=== PATIENT | male | born 1975 | race Caucasian/White ===

== ENCOUNTER 2022-08-21 08:25 | Outpatient (CLI) | payer OTHER, SELFPAY ==
[2022-08-21 18:39] LABS: Alanine Aminotransferase 21 U/L (6-50); Albumin Level 4.8 g/dL (3.5-5.1); Alkaline Phosphatase 57 U/L (38-126); Anion Gap 5 mmol/L (8-16); Aspartate Amino Transferase 59 U/L (17-59); Bilirubin,Total 0.6 mg/dL (0.2-1.3); Blood Urea Nitrogen 22 mg/dL (9-20); Calcium 9.1 mg/dL (8.4-10.2); Carbon Dioxide 33 mmol/L (22-30); Chloride 103 mmol/L (98-107); Cholesterol 216 mg/dL (0-200); Estimated Glomerular Filt Rate > 60; Glucose 91 mg/dL (65-110); HDL Direct 60 mg/dL; Potassium 4.3 mmol/L (3.4-5.0); Sodium 141 mmol/L (137-145); Triglycerides 54 mg/dL (<150)
[2022-08-21 18:50] LABS: LDL Cholesterol Direct 114 mg/dL
[2022-08-21 19:24] LABS: Basophils Percent Auto 0.7 % (0.2-1.2); Eosinophils Absolute Auto 0.1 K/mm3 (0-0.3); Eosinophils Percent Auto 1.8 % (0-4.4); Hematocrit 46.7 % (42.0-52.0); Hemoglobin 15.1 g/dL (14.0-18.0); Immature Granulocyte Absolute 0.01 K/mm3 (0.00-0.031); Immature Granulocyte Percent A 0.2 % (0-0.5); Lymphocytes Absolute Auto 2.18 K/mm3 (0.9-3.2); Lymphocytes Percent Auto 39.6 % (18.3-44.2); Mean Corpuscular HGB Conc 32.3 g/dl (32-36); Mean Corpuscular Hemoglobin 29.9 pg (26-34); Mean Corpuscular Volume 92.5 fl (80-100); Mean Platelet Volume 10.8 fl (7.4-10.4); Monocytes Absolute Auto 0.5 K/mm3 (0.1-0.6); Monocytes Percent Auto 8.9 % (2.6-8.5); Neutrophils Absolute Auto 2.7 K/mm3 (1.3-6.7); Neutrophils Percent Auto 48.8 % (45.5-73.1); Platelet Count Result 219 k/mm3 (150-375); Red Blood Count 5.05 M/mm3 (4.6-6.20); Red Cell Distribution Width 12.2 % (11.5-14.5); White Blood Count 5.5 K/mm3 (4.5-10.0)
[2022-08-25 16:12] LABS: Testosterone Free 67.9 pg/mL (35.0-155.0); Testosterone Total 377 ng/dL (250-1100)
== END 2022-08-21 08:26 | disposition home or self-care (01) ==
PROVIDERS: PCP Family Medicine; Visit Provider Family Medicine
DX: Z00.00 Encounter for general adult medical examination without abnormal findings (principal); Z13.89 Encounter for screening for other disorder
CPT/HCPCS: 36415; 80053; 80061; 84402; 84403; 85025

== ENCOUNTER 2023-08-27 08:41 | Outpatient (CLI) | payer OTHER, SELFPAY ==
[2023-08-27 18:09] LABS: Hematocrit 46.2 % (42.0-52.0); Hemoglobin 14.7 g/dL (14.0-18.0); Mean Corpuscular HGB Conc 31.8 g/dl (32-36); Mean Corpuscular Hemoglobin 29.2 pg (26-34); Mean Corpuscular Volume 91.7 fl (80-100); Mean Platelet Volume 10.5 fl (7.4-10.4); Platelet Count Result 230 k/mm3 (150-375); Red Blood Count 5.04 M/mm3 (4.6-6.20); Red Cell Distribution Width 12.1 % (11.5-14.5); White Blood Count 5.7 K/mm3 (4.5-10.0)
[2023-08-27 18:21] LABS: Alanine Aminotransferase 31 U/L (6-50); Albumin Level 4.4 g/dL (3.5-5.1); Alkaline Phosphatase 56 U/L (38-126); Anion Gap 4 mmol/L (4-12); Aspartate Amino Transferase 94 U/L (17-59); Bilirubin,Total 0.6 mg/dL (0.2-1.3); Blood Urea Nitrogen 20 mg/dL (9-20); Calcium 9.3 mg/dL (8.4-10.2); Carbon Dioxide 29 mmol/L (22-30); Chloride 106 mmol/L (98-107); Cholesterol 196 mg/dL (0-200); Estimated Glomerular Filt Rate 58; Glucose 92 mg/dL (65-110); HDL Direct 62 mg/dL; Sodium 139 mmol/L (137-145); Triglycerides 59 mg/dL (<150)
[2023-08-27 18:42] LABS: LDL Cholesterol Direct 106 mg/dL
[2023-08-30 15:59] LABS: Testosterone Free 64.2 pg/mL (35.0-155.0); Testosterone Total 396 ng/dL (250-1100)
== END 2023-08-27 08:42 | disposition home or self-care (01) ==
LOC: ANHBWCLAB 08:42
PROVIDERS: PCP Family Medicine; Visit Provider Nurse Practitioner Adult Health
DX: Z13.9 Encounter for screening, unspecified (principal); Z12.5 Encounter for screening for malignant neoplasm of prostate; R53.83 Other fatigue
CPT/HCPCS: 36415; 80053; 80061; 84153; 84402; 84403; 84443; 85027; G0103

== ENCOUNTER 2023-09-15 06:05 | Day surgery (SDC) | payer OTHER, SELFPAY ==
[2023-08-28 09:16] VITALS: BMI 28.9
--- NOTE | 2023-09-14 13:57 | P.HP_ITS ---
History of Present Illness History of Present Illness Consent: Risks, benefits, and alternatives have been discussed and questions answered. Patient agrees to proceed with procedure. Chief complaint: Screening neoplasm of colon Narrative: Sly Hall is a 48 year old male was referred for colon cancer screen Review of Systems Review of Systems: All systems reviewed & are unremarkable except as noted in HPI and below PMFSH Past Medical History Medical History Kidney stones Family History Family History Mother Ovarian cancer Social History Social History Smoking status: Never smoker Alcohol intake: current Drinks per week: 4 Alcohol use details: 6 Substance use: never Substance use type: does not use Lack of Transportation: No Lack of Food: Never True Current Housing: I Have Housing Concerned About Future Housing: No Difficulty Paying Gas/Electric Bills: No Difficulty Paying for Meds: No Currently Unemployed: No Education: Master's Degree or Higher Difficulty w/ Childcare or Family Care: No Living arrangements: with family Occupation/Education: occupation Additional occupation/education comments: [employer]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 Gender identity (if verbalized by the patient): Male Agree to blood products: Yes Meds Home Medications and Allergies Home Medications Medication Instructions Recorded Confirmed Type cetirizine 10 mg tablet (Zyrtec) 10 mg PO DAILY PRN Allergic 08/21/22 09/15/23 History Symptoms ibuprofen 800 mg tablet 800 mg PO Q6H 08/21/22 09/15/23 History tadalafil 2.5 mg tablet 8.5 mg PO DAILY 08/27/23 09/15/23 History Allergies Allergy/AdvReac Type Severity Reaction Status Date / Time No Known Allergies Allergy Verified 09/15/23 07:23 Exam Resp: Auscultation: clear to auscultation bilaterally Cardio: Rate: regular rate Rhythm: regular rhythm GI: GI Palp: Yes Soft to palpation and No Tenderness to palpation present (GI) Assessment and Plan Assessment and plan (1) Encounter for screening colonoscopy: Code(s): Z12.11 - Encounter for screening for malignant neoplasm of colon Status: Acute Assessment and Plan: Colonoscopy with possible biopsy or polypectomy or cautery or injection of substances.
--- NOTE | 2023-09-15 07:16 | P.PNAN_ITS ---
Anes - Initial Pre Proc Eval Procedure: Operation Date: 09/15/23 08:30 Proposed Procedures p Screening Colonoscopy - Colby Perdomo MD Date/Time: 09/15/23 07:16 Surgeon: Colby Perdomo MD Pre Op Diagnosis: Screening neoplasm of colon Patient Data Age: 48 Gender: M Height: 1.78 m Weight: 91.172 kg Allergies Allergy/AdvReac Type Severity Reaction Status Date / Time No Known Allergies Allergy Verified 09/15/23 07:23 Home Medications Medication Instructions Recorded Confirmed Type cetirizine 10 mg tablet (Zyrtec) 10 mg PO DAILY PRN Allergic 08/21/22 09/15/23 History Symptoms ibuprofen 800 mg tablet 800 mg PO Q6H 08/21/22 09/15/23 History tadalafil 2.5 mg tablet 8.5 mg PO DAILY 08/27/23 09/15/23 History Patient hx anesthesia problems: none Family hx anesthesia problems: none Results Review: All pre-operative results and documents have been reviewed as part of the pre- operative evaluation. PENDING SALE TO [facility] Past Medical History Medical History Kidney stones Family History Family History Mother Ovarian cancer Social History Social History Smoking status: Never smoker Alcohol intake: current Drinks per week: 4 Alcohol use details: 6 Substance use: never Substance use type: does not use Lack of Transportation: No Lack of Food: Never True Current Housing: I Have Housing Concerned About Future Housing: No Difficulty Paying Gas/Electric Bills: No Difficulty Paying for Meds: No Currently Unemployed: No Education: Master's Degree or Higher Difficulty w/ Childcare or Family Care: No Living arrangements: with family Occupation/Education: occupation Additional occupation/education 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 Informed Consent: The patient's anesthetic plan and its attendant risks and benefits were discussed with the patient/family/POA. Questions were solicited and answers provided to the satisfaction of the patient/family/POA.
[2023-09-15 07:30] VITALS: BP 143/98; PULSE 58; RESP 18; TEMP 36.8; O2SAT 100; BMI 29.0
[2023-09-15] MEDS: LACTATED RINGERS 1,000 ML 150 ML IV CONT (07:51)
[2023-09-15 08:30] VITALS: BP 107/68; PULSE 61; RESP 15
[2023-09-15 08:40] VITALS: BP 119/85; PULSE 85; RESP 16; O2SAT 98
[2023-09-15 08:50] VITALS: BP 127/90; PULSE 49; RESP 15; O2SAT 99
--- NOTE | 2023-09-15 12:20 | WPDANESPN ---
Anes - Prog Note Post-Op Date/Time: 09/15/23 12:20 Cardiovascular status: normal Respiratory status: normal Airway patency: baseline Mental status: baseline Post-Op hydration status: normal Vital Signs: Last Vital Signs Temp 36.8 C 09/15/23 07:30 Pulse 49 L 09/15/23 08:50 Resp 15 09/15/23 08:50 BP 127/90 09/15/23 08:50 Pulse Ox 99 09/15/23 08:50 O2 Del Method Room Air 09/15/23 08:50 Pain Score (VAS): 0 I/O: Intake & Output 09/14/23 09/15/23 09/15/23 23:59 07:59 15:59 Intake Total 400 Balance 400 Post-procedural complaints: none Patient Feedback: Patient satisfied with anesthetic care. Other Findings: Patient vital signs back to baseline. Patient denies nausea and vomiting. Patient's pain under control. Patient OK for discharge.
== END 2023-09-15 09:08 | disposition home or self-care (01) ==
PROVIDERS: PCP Family Medicine; Visit Provider Internal Medicine Gastroenterology
PROC: 0DJD8ZZ Inspection of Lower Intestinal Tract, Via Natural or Artificial Opening Endoscopic (ICD-10-PCS; CPT 45378; principal; 2023-09-15 08:30)
DX: Z12.11 Encounter for screening for malignant neoplasm of colon (principal)
CPT/HCPCS: 45378